=== PATIENT | male | born 2000 | race Caucasian/White ===

== ENCOUNTER 2024-06-17 18:29 | Emergency (ER) | payer SELFPAY ==
[2024-06-17 18:41] VITALS: BP 118/75; PULSE 95; TEMP 36.3; O2SAT 100; BMI 23.3
[2024-06-17] MEDS: ketorolac 30 mg/mL INJ IVP (19:04)
[2024-06-17] MEDS: ondansetron 2 mg/ML SDV 2 mL 8 MG IVP (19:04)
[2024-06-17 19:28] LABS: Basophils # 0.1 10^3/uL (0.0-0.1); Basophils % 0.3 %; Hematocrit 42.8 % (37-53); Lymphocytes % 4.7 %; Mean Corpuscular HGB Conc 33.6 g/dL (30-55); Mean Corpuscular Hemoglobin 28.9 pg (27-33); Mean Corpuscular Volume 85.8 fl (82-101); Monocytes # 0.6 10^3/uL (0.2-0.9); Monocytes % 2.9 %; Neutrophils # 18.69 10^3/uL (1.8-7.7); Neutrophils % 91.5 %; Nucleated Red Blood Cells % 0 %; Platelet Count 232 10^3/cmm (157-399); Red Blood Count 4.99 10^6/uL (3.85-5.65); Red Cell Distribution Width 12.2 % (12.1-15.1); White Blood Count 20.45 10^3/uL (3.29-11.43)
[2024-06-17 19:42] LABS: Alanine Aminotransferase 12 U/L (0-41); Albumin Level 4.5 g/dL (3.5-5.2); Alkaline Phosphatase 99 U/L (40-130); Anion Gap 20.4 (5-19); Aspartate Amino Transferase 17 U/L (0-40); Blood Urea Nitrogen 24 mg/dL (6-20); Calcium 9.3 mg/dL (8.5-10.5); Carbon Dioxide 20 mmol/L (22-29); Chloride 100 mmol/L (98-107); Creatinine Clr Calc Pharmacy 142.1555; Glomerular Filtration Rate 137.4 mL/min (90-130); Glucose 153 mg/dL (65-115); Osmolality Calculated 291 mOsm/kg (285-295); Potassium 3.4 mmol/L (3.5-5.1); Sodium 137 mmol/L (136-145); Total Bilirubin 0.3 mg/dL (0.15-1.2); Total Protein 7.5 g/dL (6.6-8.7)
[2024-06-17 19:53] LABS: Influenza A NEGATIVE (Negative); Influenza B NEGATIVE (Negative); Respiratory Syncytial Virus Ce NEGATIVE (Negative); SARS-CoV-2 PCR NEGATIVE (Negative)
--- NOTE | 2024-06-17 20:03 | CTR_ITS ---
PROCEDURE INFORMATION: Exam: CT Head Without Contrast Exam date and time: 06/17/2024 8:18 PM Age: 23 years old Clinical indication: Pain; Headache; Migraine; Aura effect not specified TECHNIQUE: Imaging protocol: Computed tomography of the head without contrast. Radiation optimization: All CT scans at this facility use at least one of these dose optimization techniques: automated exposure control; mA and/or kV adjustment per patient size (includes targeted exams where dose is matched to clinical indication); or iterative reconstruction. COMPARISON: No relevant prior studies available. RADIATION DOSE METRICS: Total DLP (mGy-cm): 1158.76 FINDINGS: Brain: Normal. No hemorrhage. Unremarkable white matter. No mass effect. Cerebral ventricles: No ventriculomegaly. Paranasal sinuses: Visualized sinuses are unremarkable. No fluid levels. Mastoid air cells: Visualized mastoid air cells are well aerated. Bones: Unremarkable. No acute fracture. Soft tissues: Unremarkable. CT/CT head wo con* [id number] IMPRESSION: No acute intracranial abnormality.
[2024-06-17] MEDS: diphenhydrAMINE 50 mg/mL SDV 1mL IVP (20:06)
[2024-06-17] MEDS: metoclopramide 5 mg/mL SDV 2 mL 10 MG IVP (20:06)
[2024-06-17] MEDS: sodium chloride 0.9% 1,000 ML 999 ML IV (20:06)
[2024-06-17 20:15] LABS: Bacteria Urine None Seen /hpf; Hyaline Casts Urine 2.87 /lpf; RBC Urine 0-2 /hpf (0-2); Squamous Epithelial Cell Urine 0-5 /hpf (0-5); WBC Urine 0-5 /hpf (0-5)
[2024-06-17 20:27] LABS: Bilirubin Urine Neg (Negative); Blood Urine Neg (Negative); Glucose Urine UA Norm (Normal); Ketones Urine 2+ (Negative); Leukocyte Esterase Urine Negative (Negative); Nitrate Urine Negative (Negative); Protein Urine Neg (Negative); Urine Appearance Cloudy (CLEAR); Urine Color Yellow (Yellow); Urobilinogen Urine Norm (Negative); pH Urine 8 (5-7)
--- NOTE | 2024-06-17 20:45 | ED_ITS ---
HPI - Headache 2 General: Chief Complaint: Headache Stated Complaint: headache n/v Time Seen by Provider: 06/17/24 18:49 History of Present Illness: Healthy 23-year-old man who presents emergency room with a headache. Says he is had a left-sided headache with nausea and several episodes of vomiting. He does not have a previous history of migraines. He is afebrile. No abdominal pain. Related Data Previous Rx's ?Medication ?Instructions ?Recorded diclofenac sodium 50 mg 50 mg PO BID PRN pain #14 ta bs 06/17/24 tablet,delayed release ondansetron 8 mg disintegrating 8 mg PO Q6H #14 tabs 0 06/17/24 tablet Allergies Allergy/AdvReac Type Severity Reaction Status Date / Time No Known Allergies Allergy Verified 06/17/24 18:46 Review of Systems 2 Narrative: Constitutional symptoms: Negative except as documented in HPI. Skin symptoms: Negative except as documented in HPI. Eye symptoms: Negative except as documented in HPI. ENMT symptoms: Negative except as documented in HPI. Respiratory symptoms: Negative except as documented in HPI. Cardiovascular symptoms: Negative except as documented in HPI. Gastrointestinal symptoms: Negative except as documented in HPI. Genitourinary symptoms: Negative except as documented in HPI. Musculoskeletal symptoms: Negative except as documented in HPI. Neurologic symptoms: Negative except as documented in HPI. Psychiatric symptoms: Negative except as documented in HPI. Endocrine symptoms: Negative except as documented in HPI. Physical Exam 2 Narrative: EXAM NARRATIVE: General: Alert, no acute distress. Skin: Warm, dry. Head: Normocephalic, atraumatic. Neck: Supple, trachea midline. Eye: Extraocular movements are intact. Ears, nose, mouth and throat: mucosa moist. Cardiovascular: Regular, Normal peripheral perfusion. Respiratory: Lungs are clear to auscultation, respirations are non-labored, breath sounds are equal, Symmetrical chest wall expansion. Gastrointestinal: Soft, Nontender, Non distended Musculoskeletal: Normal ROM, no deformity. Neurological: Alert and oriented, No focal neurological deficit observed. Psychiatric: Cooperative, appropriate mood & affect. Course 2 Vital Signs: Vital signs: Vital Signs Temperature 97.3 F L 06/17/24 18:41 Pulse Rate 98 06/17/24 21:56 Blood Pressure 128/70 06/17/24 21:56 Pulse Oximetry 99 06/17/24 21:56 Oxygen Delivery Me thod Room Air 06/17/24 18:41 MDM - Headache Medical Decision Making Medical decision making: Differential diagnosis for this patient presenting with severe headache including but not limited to and based on the above HPI, review of systems and physical exam: Intracranial hemorrhage, stroke, migraine, cluster headache, infections such as influenza, covid Orders placed to evaluate differential diagnosis based on the above differential, HPI and physical exam Lab Review: Laboratory results were reviewed and interpreted by myself the emergency room physician. Patient does have some leukocytosis. Also an elevation in his BUN. However urinalysis is negative for infection. Flu COVID and RSV are negative. CT head: No acute intracranial process. no intracranial hemorrhage, no evidence of infarct. no evidence of acute fracture.This was reviewed and interpreted by myself the ER physician. I reviewed the patient's medical record. Reexamination: Patient remained stable. No increased work of breathing. No altered mental status. No focal motor deficits. Assessment and plan: Headache Viral gastroenteritis ? IV Zofran. IV Toradol. IV Reglan and Benadryl. - Discharged home - Discussed plan with patient. Answered any questions. - Evaluation and treatment of this problem were appropriate in the emergency setting. Lab Data 06/17/24 19:03 06/17/24 19:[address] 06/17/24 20:03 IMPRESSION: No acute intracranial abnormality. Laboratory Results WBC 20.45 10^3/uL (3.29-11.43) H 06/17/24 19:03 RBC 4.99 10^6/uL (3.85-5.65) 06/17/24 19:03 Hgb 14.40 g/dL (11.27-16.99) 06/17/24 19:03 Hct 42.8 % (37-53) 06/17/24 19:03 MCV 85.8 fl (82-101) 06/17/24 19:03 MCH 28.9 pg (27-33) 06/17/24 19: MCHC 33.6 g/dL (30-55) 06/17/24 19:03 RDW 12.2 % (12.1-15.1) 06/17/24 19:03 Plt Count 232 10^3/cmm (157-399) 06/17/24 19:03 MPV 10.0 fL (7.4-10.4) 06/17/24 19:03 Neut % (Auto) 91.5 % 06/17/24 19:03 Lymph % (Auto) 4.7 % 06/17/24 19:03 Moffat % (Auto) 2.9 % 06/17/24 19:03 Eos % (Auto) 0.0 % 06/17/24 19:03 Baso % (Auto) 0.3 % 06/17/24 19:03 Neut # (Auto) 18.69 10^3/uL (1.8-7.7) H 06/17/24 19:03 Lymph # (Auto) 1.0 10^3/uL (0.8-4.8) 06/17/24 19:03 Moffat # (Auto) 0.6 10^3/uL (0.2-0.9) 06/17/24 19:03 Eos # (Auto) 0.0 10^3/uL (0.0-0.8) 06/17/24 19:03 Baso # (Auto) 0.1 10^3/uL (0.0-0.1) 06/17/24 19:03 Nucleated RBC % (auto) 0 % 06/17/24 19:03 Nucleated RBCs # 0.0 /100WBC 06/17/24 19:03 Sodium 137 mmol/L (136-145) 06/17/24 19:03 Potassium 3.4 mmol/L (3.5-5.1) L 06/17/24 19:03 Chloride 100 mmol/L (98-107) 06/17/24 19:03 Carbon Dioxide 20 mmol/L (22-29) L 06/17/24 19:03 Anion Gap 20.4 (5-19) H 06/17/24 19:03 BUN 24 mg/dL (6-20) H 06/17/24 19:03 Creatinine 0.7 mg/dL (0.7-1.2) 06/17/24 19:03 GFR Calculation 137.4 mL/min (90-130) H 06/17/24 19:03 Glucose 153 mg/dL (65-115) H 06/17/24 19:03 Calculated Osmolality 291 mOsm/kg (285-295) 06/17/24 19:03 Calcium 9.3 mg/dL (8.5-10.5) 06/17/24 19:03 Total Bilirubin 0.3 mg/dL (0.15-1.2) 06/17/24 19:03 AST 17 U/L (0-40) 06/17/24 19:03 ALT 12 U/L (0-41) 06/17/24 19:03 Alkaline Phosphatase 99 U/L (40-130) 06/17/24 19:03 Total Protein 7.5 g/dL (6.6-8.7) 06/17/24 19:03 Albumin 4.5 g/dL (3.5-5.2) 06/17/24 19:03 Globulin 3.0 g/dL (1.3-4.6) 06/17/24 19:03 Urine Color Yellow (Yellow) 06/17/24 20:04 Urine Appearance Cloudy (CLEAR) A 06/17/24 20:04 Urine pH 8 (5-7) A 06/17/24 20:04 Ur Specific [place] 1.010 (1.005-1.030) 06/17/24 20:04 Urine Protein Neg (Negative) 06/17/24 20:04 Urine Glucose (UA) Norm (Normal) 06/17/24 20:04 Urine Ketones 2+ (Negative) H 06/17/24 20:04 Urine Blood Neg (Negative) 06/17/24 20:04 Urine Nitrate Negative (Negative) 06/17/24 20:04 Urine Bilirubin Neg (Negative) 06/17/24 20:04 Urine Urobilinogen Norm mg/dL (Negative) 06/17/24 20:04 Ur Leukocyte Esterase Negative (Negative) 06/17/24 20:04 Urine RBC 0-2 /hpf (0-2) 06/17/24 20:04 Urine WBC 0-5 /hpf (0-5) 06/17/24 20:04 Ur Squamous Epith Cells 0-5 /hpf (0-5) 06/17/24 20:04 Amorphous Sediment Not Reportable 06/17/24 20:04 Urine Bacteria None seen /hpf (NONE) 06/17/24 20:04 Hyaline Casts 2.87 /lpf 06/17/24 20:04 Influenza A (PCR) Negative (Negative) 06/17/24 19:13 Influenza Type B (PCR) Negative (Negative) 06/17/24 19:13 RSV (PCR) Negative (Negative) 06/17/24 19:13 SARS-CoV-2 (PCR) Negative (Negative) 06/17/24 19:13 All radiology interpretation(s) finalized by discharge Discharge Plan Discharge Patient Disposition: Home Clinical Impression: Headache Condition: Stable Prescriptions: New ondansetron 8 mg tablet,disintegrating 8 mg PO Q6H Qty: 14 0RF Rx Instructions: Take 1/2-1 tab every 6 hours as needed for nausea and vomiting diclofenac sodium 50 mg tablet,delayed release (DR/EC) 50 mg PO BID PRN (Reason: pain) Qty: 14 0RF Discharge Orders: Discharge ED (Routine); Ordered 06/17/24 Ordered By: Daphne Ruvalcaba Discharge Diet: Usual diet Discharge Activity: Increase activity as tolerated Patient Instructions: Opioid Safety, Pain Management Activity Restrictions/Additional Instructions: Thank you for choosing [facility] for your healthcare needs today. Please realize this is an emergency room and that we are providing you with a medical screening exam and this may not be complete and all inclusive of all the testing and or work up that you may need to determine your ailment or severity of your illness. You have been screened and evaluated and felt safe for discharge. Health conditions do change or evolve sometimes and as such it is important that you follow up with your Primary Doctor to be re checked, 3-5 days is a general good time frame for follow up. You are always welcome to return to the ED for re assessment if your symptoms are worsening or you have new concerns Print Language: Montserratian Coding Level of Care Code ED [employer] Support for Boris Bliss
[2024-06-17 21:56] VITALS: BP 128/70; PULSE 98; O2SAT 99
== END 2024-06-17 21:57 | disposition home or self-care (01) ==
PROVIDERS: Emergency Provider Emergency Medicine
DX: R51.9 Headache, unspecified (principal); Z11.52 Encounter for screening for COVID-19
CPT/HCPCS: 36415; 70450; 80053; 81001; 85025; 87637; 96374; 96375; 99285; J1200; J1885; J2405; J2765; J7030